=== PATIENT | male | born 1975 | race Two or more races ===

== ENCOUNTER 2019-10-15 11:58 | Emergency (ER) | payer SELFPAY ==
[~2019-10-15] VITALS: Ht 175.3 cm; Wt 108.9 kg
[2019-10-15 12:21] LABS: BASOPHILS % (AUTO) 0.8 % (0.0-2.0); EOSINOPHILS % (AUTO) 1.7 % (0.0-6.0); HEMATOCRIT 44 % (39-51); HEMOGLOBIN 14.7 g/dL (13.5-17.5); LYMPHOCYTES # (AUTO) 2.4 /CMM (0.8-4.8); LYMPHOCYTES % (AUTO) 39.2 % (20.0-44.0); MEAN CORPUSCULAR HGB CONC 34 g/dl (31.0-36.0); MEAN CORPUSCULAR VOLUME 95 fL (80-96); MONOCYTES # (AUTO) 0.7 /CMM (0.1-1.30); MONOCYTES % (AUTO) 10.8 % (2.0-12.0); NEUTROPHILS % (AUTO) 47.5 % (43.0-81.0); PLATELET COUNT (AUTO) 218 /CMM (150-450); WHITE BLOOD COUNT (AUTO) 6.2 K/uL (4.3-11.0)
[2019-10-15 12:33] LABS: CREATININE 0.7 mg/dL (0.6-1.3); POTASSIUM 4.2 mmol/L (3.5-5.1)
[2019-10-15 12:40] LABS: ALBUMIN 3.9 g/dL (3.4-5.0); BILIRUBIN,TOTAL 0.1 mg/dL (0.2-1.0); TOTAL PROTEIN, SERUM 7.6 g/dL (6.4-8.2)
[2019-10-15 12:41] LABS: SALICYLATE 1.3 mg/dL (2.8-20.0)
--- NOTE | 2019-10-15 14:22 | NUR ---
TOOK OVER CARE FOR PATIENT
--- NOTE | 2019-10-15 14:22 | NUR ---
URINE COLLECTED AND SENT TO LAB
[2019-10-15 14:30] LABS: APPEARANCE,URINE Clear (CLEAR); BILIRUBIN,URINE Negative (NEGATIVE); BLOOD, URINE Small Ery/uL (NEGATIVE); COLOR,URINE Yellow (YELLOW); KETONES,URINE Negative (NEGATIVE); LEUKOCYTE ESTERASE ,URINE Negative (NEGATIVE); NITRITE, URINE Negative (NEGATIVE); PROTEIN,URINE Negative (NEGATIVE); UGLUCOSE Negative (NEGATIVE); UROBILINOGEN,URINE 0.2 EU/dL (0.2)
[2019-10-15 14:31] LABS: BACTERIA,URINE None seen /HPF (None Seen); SQUAMOUS EPITHELIAL CELL,UR Few /HPF (None Seen); WBC,URINE 0-2 /HPF (0-3)
--- NOTE | 2019-10-15 16:05 | NUR ---
Social service consult requested by Dr. Merchant for alcohol intoxication. Pt. is a 44 year old male who was brought in by paramedics. Patient was found passed out on someone's lawn. MICHAEL met with the pt. bedside. Pt. has a sitter bedside. Ariana Vogt assisted with Bulgarian translation. Pt. states he resides with family in [facility]. Pt. is from his . Pt. states he drinks approximately 8 cans of [employer] beer daily. Pt. denies any history of alcohol treatment programs. MICHAEL offered pt. referrals to alcohol treatment programs, however pt. declined. Pt.states he will be going back to [facility] once discharged. Pt. denies any suicidal and homicidal ideations. No other social service needs are requested at this time. MICHAEL updated TELLY Jeffrey regarding pt's discharge plan.
--- NOTE | 2019-10-15 19:43 | NUR ---
Pt requesting to be discharged home. pt ok to discharge per dr [place]. Patient discharged to home in stable condition. Written and verbal after care instructions given. Patient verbalizes understanding of instruction.Patient is awake and alert to self, day, and place. Pt ambulatory with a steady gait
[2019-10-15 20:10] VITALS: BP 126/88
== END 2019-10-15 19:38 | disposition home or self-care (01) ==
LOC: ER 12:00 → EDBD 12:00 → ER 19:38
DX: F10.129 Alcohol abuse with intoxication, unspecified (principal); Y90.9 Presence of alcohol in blood, level not specified
CPT/HCPCS: 36415; 80048; 80076; 80305; 80307; 80329; 81001; 85025; 99283; G0480; 81000-TC